=== PATIENT | female | born 1995 | race Caucasian/White ===

== ENCOUNTER 2021-11-28 12:23 | Emergency (ER) | payer MEDICAID ==
[~2021-11-28] VITALS: Ht 170.2 cm; Wt 75.0 kg
[2021-11-28] MEDS ORDERED: IBUPROFEN 600MG TABLET PO STA (16:43)
[2021-11-28] MEDS ORDERED: IBUPROFEN 600MG TABLET PO SCH (18:00)
[2021-11-28 18:28] VITALS: BP 120/76
[2021-11-28] MEDS ORDERED: CYCL10TA21 MT (20:16)
[2021-11-28] MEDS ORDERED: IBUP-2029 MT (20:16)
== END 2021-11-28 21:02 | disposition home or self-care (01) ==
LOC: ER 12:58
DX: S80.02XA Contusion of left knee, initial encounter (principal); S09.90XA Unspecified injury of head, initial encounter; V89.2XXA Person injured in unspecified motor-vehicle accident, traffic, initial encounter; Y93.89 Activity, other specified; Y92.89 Other specified places as the place of occurrence of the external cause; Y99.8 Other external cause status
CPT/HCPCS: 72070; 73560; 81025; 99284